=== PATIENT | male | born 1975 | race Caucasian/White ===

== ENCOUNTER → 2016-09-04 | Emergency (ER) | payer BC ==
[~2016-09-04] VITALS: Ht 175.3 cm; Wt 109.0 kg
[~2016-09-04] MED LIST: ED- ALBUTEROL HFA (VENTOLIN HFA) 8 GM INHALER IH ONE
[2016-09-04 17:09] VITALS: BP 153/80
== END | disposition home or self-care (01) ==
LOC: ED 16:05
DX: J44.9 Chronic obstructive pulmonary disease, unspecified (principal)
CPT/HCPCS: 71020; 94664; 99282; 99283